=== PATIENT | female | born 1985 | race Caucasian/White ===

== ENCOUNTER 2023-10-25 15:51 | Emergency (ER) | payer BC ==
[~2023-10-25] VITALS: Ht 154.9 cm; Wt 77.3 kg
[2023-10-25 16:06] VITALS: BP 104/71; PULSE 96; TEMP 97.9; O2SAT 98
[2023-10-25 16:34] VITALS: RESP 16
[2023-10-25] MEDS: ibuprofen tablet 400 MG TABLET PO ONE (16:34)
[2023-10-25] MEDS: HYDROcodone/acetaminophen 10/325mg tab PO ONE (16:34)
[2023-10-25] MEDS: TETanus/Pertussis (Acell)/Diphther VAC/PF (Tdap-Adult) 0.5ml syringe IMVAC ONE (16:35)
[2023-10-25] MEDS ORDERED: HYDR-3973 PO (17:00)
[2023-10-25] MEDS: bacitracin 15gm ointment TP ONE (17:25)
== END 2023-10-25 18:40 | disposition home or self-care (01) ==
LOC: ER 15:51
DX: S82.832A Other fracture of upper and lower end of left fibula, initial encounter for closed fracture (principal); Z79.899 Other long term (current) drug therapy; Z23 Encounter for immunization; W22.8XXA Striking against or struck by other objects, initial encounter; Y93.01 Activity, walking, marching and hiking; Y92.89 Other specified places as the place of occurrence of the external cause; Y99.8 Other external cause status
CPT/HCPCS: 29515; 73590; 73610; 73630; 90471; 90715; 99284; A6222; J7030; L4360; A6258